=== PATIENT | female | born 1935 | race Caucasian/White ===

== ENCOUNTER → 2016-07-16 | Outpatient (CLI) | payer MEDICARE, OTHER ==
[~2016-07-16] MED LIST: ASPIRIN LO-DOSE81 MG PO; BIOTIN5000 MCG PO; CLARITIN10 M3 PO; FISH OIL300 MG PO; LASIX20 MG PO; LIVALO1 MG PO; NORVASC5 MG PO; OCUVITE SOFTGE1 EACH PO; OSCAL + D500 MG PO; TENORMIN50 MG PO; THERA-VITE W/ B1 TAB PO; ULTRAM50 MG PO; VITAMIN B-121000 MCG PO; VITAMIN D1000 UNIT PO; VOLTAREN 1% GE100 GM TOP; [UNRECOGNIZED DRUG - OTHER] TOP
[2016-07-16 13:33] LABS: ALBUMIN 3.5 gm/dL (3.5-5.0); ALK PHOS 56 IU/L (33-138); ALT 22 IU/L (12-78); AST 11 IU/L (10-40); BLOOD UREA NITROGEN 15 mg/dL (6-24); CALCIUM 9.1 mg/dL (8.5-10.5); CHLORIDE 106 mMol/L (96-110); CO2 33 mMol/L (22-32); CREATININE 0.8 mg/dL (0.5-1.1); ESTIMATED GFR (MDRD EQUATION) > 60; SODIUM 144 mMol/L (135-145); TOTAL BILIRUBIN 0.8 mg/dL (0.0-1.5); TOTAL PROTEIN 6.9 g/dL (6.0-8.4)
== END | disposition disaster alternative care site (69) ==
LOC: GLAB 12:11
PROVIDERS: Surgery Vascular Surgery
DX: M79.604 Pain in right leg (principal); I70.0 Atherosclerosis of aorta; I70.8 Atherosclerosis of other arteries; I74.8 Embolism and thrombosis of other arteries; I70.203 Unspecified atherosclerosis of native arteries of extremities, bilateral legs
CPT/HCPCS: Q9967

== ENCOUNTER 2016-07-24 06:56 | Outpatient (CLI) | payer MEDICARE, OTHER ==
[~2016-07-24] VITALS: Ht 170.2 cm; Wt 80.6 kg
--- NOTE | ~2016-07-24 | OR ---
PATIENT'S NAME: MARTIN [facility] AGE: 81 Y [address] ROOM: [address] [address] LOCATION: GPCU ADMIT DATE: 07/24/2016 OR/Procedure Report DISCHARGE DATE: 07/24/2016 FAMILY PHYSICIAN: Lawrence Palmer MD ATTENDING PHYSICIAN: Evaristo Anderson SURGEON: Evaristo Anderson MD EMERGENCY ROOM ORDERLY: DATE OF PROCEDURE: 07/24/2016 PREOPERATIVE DIAGNOSIS: Severe bilateral lower extremity claudication. POSTOPERATIVE DIAGNOSIS: Severe bilateral lower extremity claudication. PROCEDURE: Aortogram with diagnostic angiogram of both lower extremities. BATCH STILL OPERATOR: Public Administration Professor staff. ANESTHESIA: MAC local. ESTIMATED BLOOD LOSS: 5 mL. OPERATIVE FINDINGS: Multiple-level stenosis of the left SFA, occlusion of the right SFA with reconstitution of the above knee pop. The patient will require a bypass of the right above-knee pop as well as a possible angioplasty of the left SFA. DESCRIPTION OF PROCEDURE: The patient was brought to the operating room and placed in the supine position, prepped and draped in a sterile manner. Preoperative time-out was performed. The patient received preoperative antibiotics. We gained access via the right groin using ultrasound guidance, we infiltrated 1% lidocaine. We gained access using a micropuncture set. We then exchanged for a 5-Lithuanian sheath. We went up in the aorta using 0.035 Glidewire as well as Omni Flush catheter. We performed the aortogram, which showed patent common and external iliac arteries. We went up over the aortic bifurcation using 0.035 Glidewire as well as Omni Flush catheter in the common femoral on the left performed. Angiogram showed multiple-level high-grade stenosis of the left SFA with a single-vessel anterior tibial runoff. The right SFA was occluded with a flush occlusion that would require a bypass. Sheath was removed. Pressure was held. The patient tolerated the procedure well and transferred to recovery room and home later that day. EVARISTO ANDERSON MD [facility] AGE[facility] 81 Y [address] ROOM: [id number] [place], [place] [address] LOCATION: GPCU ADMIT DATE: 07/24/2016 OR/Procedure Report DISCHARGE DATE: 07/24/2016 FAMILY PHYSICIAN: Lawrence Palmer MD ATTENDING PHYSICIAN: Evaristo Anderson/carroll /[id number] d: 07/24/162206 t: 07/27/16 1014, OPERATIVE SUMMARY
== END 2016-07-24 14:20 | disposition disaster alternative care site (69) ==
LOC: GCAT 06:56 → GPCU 06:56 → GPOC 07:00 → GCAT 14:20
PROC: 04HY32Z Insertion of Monitoring Device into Lower Artery, Percutaneous Approach (ICD-10-PCS; principal; 2016-07-24)
DX: I73.9 Peripheral vascular disease, unspecified (principal)
CPT/HCPCS: C1769; C1887; J0690; J1644; J2001; J2250; J3010; J7030